=== PATIENT | female | born 1990 | race Caucasian/White ===

== ENCOUNTER 2017-07-10 16:36 | Emergency (ER) | payer BC ==
[~2017-07-10] VITALS: Ht 170.2 cm; Wt 64.0 kg
[~2017-07-10 16:36] MED LIST: VITAFOL-OB+DHA1 EACH PO
[2017-07-10] MEDS ORDERED: NORCO 5-325 TA1 EACH PO (18:19)
== END 2017-07-10 18:42 | disposition home or self-care (01) ==
LOC: ED 16:36 → EDBD 16:38 → ED 16:38
DX: O99.352 Diseases of the nervous system complicating pregnancy, second trimester (principal); G43.809 Other migraine, not intractable, without status migrainosus; Z3A.25 25 weeks gestation of pregnancy; Z79.899 Other long term (current) drug therapy
CPT/HCPCS: 99282

== ENCOUNTER 2017-10-10 01:28 | Inpatient (IN) | payer BC ==
[~2017-10-10] VITALS: Ht 167.6 cm; Wt 69.0 kg
[~2017-10-10 01:28] MED LIST changes: +NORCO 5-325 TA1 EACH PO
--- NOTE | 2017-10-10 02:50 | PR ---
[facility] [address] [facility] [place], [place] [address] Signed Progress Notes IP Datetime Report Generated by NILO: 10/10/2017 02:50 PROGRESS NOTES: [id number] Impression: Normal progression of labor Procedures: Sterile Vag Exam Plan: Continue present management VITAL SIGNS: [id number] Vital Signs: Reviewed; Within Normal Limits EXAM: [id number] Dilatation: 9.0 Effacement: 90 Station: -2 Uterine Contractions: q 2 to 3 min MEMBRANES: [id number] Membrane Status: Intact Comments: IV finally placed. Progressing. Will continue. Fetus A: [id number] FHR Baseline: 120 Variability: Moderate 6-25bpm Accelerations: 15X15 Decelerations: None FHR Category: Category I Presentation: Vertex Comments on Fetus A: No evidence of metabolic acidosis. Fetus B: [id number] Signing Physician: Shanna Rasmussen MD CC: *Electronically Signed* 10/10/17 0250 SHANNA RASMUSSEN MD PATIENT NAME: DAMIÁN BURROUGHS PROGRESS NOTE DATE OF : 89 PHYSICIAN: SHANNA RASMUSSEN MD RPT #: [id number] REPORT IS CONFIDENTIAL AND NOT TO BE RELEASED WITHOUT AUTHORIZATION
--- NOTE | 2017-10-11 08:14 | PR ---
[facility] [address] [facility] [place], [place] [address] Signed PP Progress Notes Datetime Report Generated by NILO: 10/11/2017 08:14 SUBJECTIVE: [id number] Pain: Within normal limits Vital Signs: [id number] Vital Signs: Reviewed; Within Normal Limits EXAM: [id number] Cardiovascular: Not Done Respiratory: Not Done Abdomen/Uterus: Abnormal Lochia: Normal Vulva/Perineum: Abnormal Breasts: Not Done CVA Tenderness: Not Done Extremities: Normal Incision: Not Applicable Progress: Normal Exam Comments: Fundus firm, NT @ U-1. Perineum with swelling of left lower labia H/H 12/34.8, WBC 11.2, plat 146k IMPRESSION/PLAN/PROCEDURES: [id number] Impression: Normal progression Plan: Discharge Progress Notes: Doing well. She desires D/C. Signing Physician: Shanna Rasmussen MD CC: *Electronically Signed* 10/11/17813 SHANNA RASMUSSEN MD PATIENT NAME: DAMIÁN BURROUGHS PROGRESS NOTE DATE OF : [birth year] PHYSICIAN: SHANNA RASMUSSEN MD RPT #: [id number] REPORT IS CONFIDENTIAL AND NOT TO BE RELEASED WITHOUT AUTHORIZATION
== END 2017-10-11 12:20 | disposition home or self-care (01) | DRG 775 ==
LOC: FBCO 01:28 → FBC 01:50
PROVIDERS: ADMIT Obstetrics & Gynecology
PROC: 0KQM0ZZ Repair Perineum Muscle, Open Approach (ICD-10-PCS; principal; 2017-10-10)
PROC: 10907ZC Drainage of Amniotic Fluid, Therapeutic from Products of Conception, Via Natural or Artificial Opening (ICD-10-PCS; principal; 2017-10-10)
PROC: 10E0XZZ Delivery of Products of Conception, External Approach (ICD-10-PCS; principal; 2017-10-10)
DX: O70.1 Second degree perineal laceration during delivery (principal); Z37.0 Single live birth; O69.81X0 Labor and delivery complicated by cord around neck, without compression, not applicable or unspecified; Z3A.38 38 weeks gestation of pregnancy
CPT/HCPCS: 36415; 85027